=== PATIENT | male | born 1980 | race Caucasian/White ===

== ENCOUNTER 2020-06-13 03:41 | Emergency (ER) | payer BC ==
[2020-06-13 03:49] VITALS: BP 120/89; PULSE 74; RESP 16; TEMP 98.8
[2020-06-13] MEDS ORDERED: SODIUM CHLORIDE 0.9% 500 ML 500 ML IV STA (04:18)
[2020-06-13] MEDS ORDERED: MORPHINE SULFATE 4 MG/ML SYRINGE IV STA (04:18)
[2020-06-13] MEDS ORDERED: SODIUM CHLORIDE 0.9% 1,000 ML IV STA ×2 (04:18)
[2020-06-13] MEDS ORDERED: KETOROLAC 15 MG/ML 1 ML VIAL IVP STA (04:18)
--- NOTE | 2020-06-13 04:20 | ED ---
Abdominal Pain HPI - General Chief Complaint: Abdominal Pain Stated Complaint: Left side abd pain Time Seen by Provider: 06/13/20 03:47 Source: patient, RN notes reviewed, old records reviewed Mode of arrival: ambulatory Limitations: no limitations - History of Present Illness Initial Comments: This is a 39-year-old male DF for evaluation patient Dese for evaluation regards to severe abdominal pain severe left-sided flank pain radiating to left groin. Patient has positive nausea no vomiting no fevers blood in the urine as well. Patient states he had similar symptoms before with a kidney stone believes that he has possibly urinary tract infection MD Complaint: abdominal pain, flank pain (left) -: days(s) Location: RLQ, L flank Radiation: suprapubic Migration to: L flank Severity: severe Severity scale (1-10): 8 Quality: stabbing, sharp Consistency: constant, intermittent Improves With: nothing Worsens With: nothing Associated Symptoms: nausea - Related Data Allergies Allergy/AdvReac Type Severity Reaction Status Date / Time No Known Allergies Allergy Verified 06/13/20 03:49 Review of Systems ROS Statement: Those systems with pertinent positive or pertinent negative responses have been documented in the HPI. ROS Other: All systems not noted in ROS Statement are negative. Past Medical History Past Medical History: No Reported History History of Any Multi-Drug Resistant Organisms: None Reported Past Surgical History: No Surgical Hx Reported Past Psychological History: No Psychological Hx Reported Smoking Status: Never smoker Past Alcohol Use History: Occasional Past Drug Use History: None Reported General Exam Limitations: no limitations General appearance: alert, in no apparent distress Head exam: Present: atraumatic, normocephalic, normal inspection Eye exam: Present: normal appearance, PERRL, EOMI. Absent: scleral icterus, conjunctival injection, periorbital swelling ENT exam: Present: normal exam, mucous membranes moist Neck exam: Present: normal inspection. Absent: tenderness, meningismus, lymphadenopathy Respiratory exam: Present: normal lung sounds bilaterally. Absent: respiratory distress, wheezes, rales, rhonchi, stridor Cardiovascular Exam: Present: regular rate, normal rhythm, normal heart sounds. Absent: systolic murmur, diastolic murmur, rubs, gallop, clicks GI/Abdominal exam: Present: soft, normal bowel sounds. Absent: distended, tenderness, guarding, rebound, rigid Extremities exam: Present: normal inspection, full ROM, normal capillary refill. Absent: tenderness, pedal edema, joint swelling, calf tenderness Back exam: Present: normal inspection Neurological exam: Present: alert, oriented X3, CN II-XII intact Psychiatric exam: Present: normal affect, normal mood Skin exam: Present: warm, dry, intact, normal color. Absent: rash Course Vital Signs 06/13/20 03:46 Temperature 98.8 F Pulse Rate 74 Respiratory 16 Rate Blood Pressure 120/89 O2 Sat by Pulse 98 Oximetry - Reevaluation(s) Reevaluation #1: 06/13/20 04:20 Medical record is reviewed Medical Decision Making - Medical Decision Making 39 male DF for evaluation of left-sided flank pain positive left-sided kidney stone does appear to be past. Patient will be given some pain medication can be discharged home - Lab Data Result diagrams: 06/13/20 04:37 06/13/20 04:37 Lab Results 06/13/20 06/13/20 Range/Units 04:37 04:37 WBC 9.1 (3.8-10.6) k/uL RBC 4.96 (4.30-5.90) m/uL Hgb 15.1 (13.0-17.5) gm/dL Hct 44.8 (39.0-53.0) % MCV 90.3 (80.0-100.0) fL MCH 30.5 (25.0-35.0) pg MCHC 33.8 (31.0-37.0) g/dL RDW 12.7 (11.5-15.5) % Plt Count 238 (150-450) k/uL Neutrophils % 76 % Lymphocytes % 14 % Monocytes % 7 % Eosinophils % 1 % Basophils % 0 % Neutrophils # 6.9 (1.3-7.7) k/uL Lymphocytes # 1.3 (1.0-4.8) k/uL Monocytes # 0.6 (0-1.0) k/uL Eosinophils # 0.1 (0-0.7) k/uL Basophils # 0.0 (0-0.2) k/uL Sodium 141 (137-145) mmol/L Potassium 4.4 (3.5-5.1) mmol/L Chloride 107 (98-107) mmol/L Carbon Dioxide 24 (22-30) mmol/L Anion Gap 10 mmol/L BUN 24 H (9-20) mg/dL Creatinine 0.94 (0.66-1.25) mg/dL Est GFR (CKD-EPI)AfAm >90 (>60 ml/min/1.73 sqM) Est GFR (CKD-EPI)NonAf >90 (>60 ml/min/1.73 sqM) Glucose 121 H (74-99) mg/dL Calcium 9.8 (8.4-10.2) mg/dL Total Bilirubin 1.0 (0.2-1.3) mg/dL AST 22 (17-59) U/L ALT 19 (4-49) U/L Alkaline Phosphatase 76 (38-126) U/L Total Protein 7.9 (6.3-8.2) g/dL Albumin 4.8 (3.5-5.0) g/dL Amylase 51 (30-110) U/L Lipase 63 (23-300) U/L - Radiology Data Radiology results: report reviewed (CT head and pelvis shows left kidney stone), image reviewed Disposition Clinical Impression: Abdominal pain, Left ureteral calculus Disposition: HOME SELF-CARE Condition: Good Instructions (If sedation given, give patient instructions): Kidney Stones (ED) Is patient prescribed a controlled substance at d/c from ED?: No Referrals: Nonstaff,Physician [Primary Care Provider] - 1-2 days
[2020-06-13 04:47] LABS: Basophils % (A) 0 %; Eosinophils # (A) 0.1 k/uL (0-0.7); Eosinophils % (A) 1 %; HCT 44.8 % (39.0-53.0); HGB 15.1 gm/dL (13.0-17.5); Lymphocytes # (A) 1.3 k/uL (1.0-4.8); Lymphocytes % (A) 14 %; MCH 30.5 pg (25.0-35.0); MCHC 33.8 g/dL (31.0-37.0); MCV 90.3 fL (80.0-100.0); Monocytes # (A) 0.6 k/uL (0-1.0); Monocytes % (A) 7 %; Neutrophils # (A) 6.9 k/uL (1.3-7.7); Neutrophils % (A) 76 %; Platelet Count 238 k/uL (150-450); RBC 4.96 m/uL (4.30-5.90); RDW 12.7 % (11.5-15.5); WBC 9.1 k/uL (3.8-10.6)
[2020-06-13 04:58] LABS: ALT 19 U/L (4-49); AST 22 U/L (17-59); African American GFR (CKD) >90 (>60 ml/min/1.73 sqM); Albumin 4.8 g/dL (3.5-5.0); Alkaline Phosphatase 76 U/L (38-126); Amylase 51 U/L (30-110); Anion Gap 10 mmol/L; Blood Urea Nitrogen 24 mg/dL (9-20); Calcium 9.8 mg/dL (8.4-10.2); Carbon Dioxide 24 mmol/L (22-30); Chloride 107 mmol/L (98-107); Glucose 121 mg/dL (74-99); Non-African American GFR(CKD) >90 (>60 ml/min/1.73 sqM); Potassium 4.4 mmol/L (3.5-5.1); Sodium 141 mmol/L (137-145); Total Protein 7.9 g/dL (6.3-8.2)
--- NOTE | 2020-06-13 05:07 | CT ---
EXAMINATION TYPE: CT abdomen pelvis wo con DATE OF EXAM: 06/13/2020 COMPARISON: None HISTORY: left side pain CT DLP: 957.3 mGycm Automated exposure control for dose reduction was used. Lung bases are clear. There is no pleural effusion. Heart size is normal. There is no pericardial eff usion. Stomach liver spleen gallbladder appear normal. Bile ducts are not dilated. There is no eviden ce of pancreatic mass. There is a small calcified splenic granuloma. There is no adrenal mass. Kidneys have normal size. There is mild fullness of the left ureter. I see no ureteral calculus. There is 2 mm calculus in the midline dependent urinary bladder. There is no in guinal hernia. There is no free fluid in the pelvis. There is no mesenteric edema. There is no ascites or free air. There is no bowel obstruction. Appendi x is normal. Lumbar vertebra have normal alignment. Posterior elements are intact. Bony pelvis is intact. Hip join ts appear intact. IMPRESSION: There is a mild fullness of the left upper collecting system consistent with mild obstruction. There is small calculus in the urinary bladder in the midline. Appearance of the left upper collecting syst em is consistent with recently passed stone that is already in the bladder.
[2020-06-13] MEDS ORDERED: TAMSULOSIN 0.4 MG CAP.ER.24H PO STA (05:14)
[2020-06-13] MEDS ORDERED: IBUPROFEN 600 MG STARTER PACK 4 TAB BTL PO STA (05:14)
[2020-06-13] MEDS ORDERED: ACET/COD 300 MG/30 MG STARTER PACK 6 TAB BTL PO STA (05:14)
[2020-06-13 06:09] LABS: Appearance,Urine Clear (Clear); Bilirubin,Urine Negative (Negative); Blood,Urine Moderate (Negative); Color,Urine Yellow; Glucose,Urine (UA) Negative (Negative); Hyaline Casts,Urine 1 /lpf (0-2); Ketones,Urine Negative (Negative); Leukocyte Esterase,Urine Negative (Negative); Mucus,Urine Rare /hpf; Nitrite,Urine Negative (Negative); PH, Urine 8.5 (5.0-8.0); Protein,Urine Trace (Negative); RBC,Urine 77 /hpf (0-5); Specific Gravity,Urine 1.021 (1.001-1.035); Squamous Epithelial Cell,Urine <1 /hpf (0-4); Urobilinogen,Urine <2.0 mg/dL (<2.0); WBC,Urine 1 /hpf (0-5)
== END 2020-06-13 05:36 | disposition home or self-care (01) ==
LOC: EC 03:41
DX: N20.1 Calculus of ureter (principal)
CPT/HCPCS: 36415; 80053; 82150; 83690; 85025; 81001; 74176; 99284; 96374; 96375; J2270; J1885